=== PATIENT | male | born 1975 | race Caucasian/White ===

== ENCOUNTER 2016-12-10 06:31 | Day surgery (SDC) | payer OTHER ==
[~2016-12-10] VITALS: Ht 182.9 cm; Wt 104.3 kg
--- NOTE | ~2016-12-10 | OP ---
PATIENT NAME: TANESHA RAY MEDICAL RECORD: [id number] :73 LOCATION:[facility] ADMISSION DATE: SURGEON: CHAIM HERNANDES MD DATE OF OPERATION: 12/10/2016 PREOPERATIVE DIAGNOSES: 1. Right inguinal hernia. 2. Umbilical hernia. 3. Male sterilization. POSTOPERATIVE DIAGNOSES: 1. Right inguinal hernia. 2. Umbilical hernia. 3. Male sterilization. PROCEDURES: 1. Right inguinal hernia repair with medium PHS mesh. 2. Umbilical hernia repair without mesh. 3. Bilateral vasectomy performed by Dr. Leigh. SURGEON: Chaim Hernandes MD CO-SURGEON: Marcos Leigh MD REPORT OF OPERATION: The patient's abdomen and pelvis were prepped and draped in sterile fashion. A skin incision was made in an oblique fashion above the right inguinal ligament. Electrocautery was used to dissect through the subcutaneous tissues. We entered the inguinal canal through an opening in the external oblique fascia, which was opened all the way to the external ring. The patient had a moderate sized inguinal hernia, which was direct. The cremasteric fibers were dissected free and we were able to free up the hernia sac from the spermatic cord, this was placed back down into the abdominal cavity. The ilioinguinal nerve was found and high ligated. At this point, Dr. Leigh came in and performed a vasectomy on the right side through the right inguinal incision and on the left side through the scrotal incision. While he was performing this, I moved up to the patient's umbilicus and made a semicircular incision on the inferior aspect of the umbilicus. Electrocautery was used to dissect through the subcutaneous tissues and I bluntly came around the umbilical stalk. The stalk was transected using electrocautery and the small hernia defect was visualized. There was a fatty omentum present within the hernia defect and this was pushed back down into the abdominal cavity. The hernia defect was approximately 1.1 cm in greatest diameter. The edges were cleaned up and the hernia was reapproximated transversely using interrupted 0 Prolenes times 4. The umbilicus was tacked back down to the fascia using an interrupted 3-0 Vicryl. The subcutaneous tissues were reapproximated with interrupted 3-0 Vicryls and the skin was closed with running subcutaneous 5-0 Monocryl. A 10 mL of 0.25% Marcaine plain was infused into the surrounding tissues of the umbilicus. At this point, Dr. Leigh was done with the vasectomy. I reapproach the patient's right inguinal canal. An opening was made in the inguinal floor and a medium PHS mesh was inserted into the preperitoneal space of Retzius. This was sutured down on all 4 sides using interrupted 0 Prolenes. The wound was irrigated out with normal saline and care was taken to make sure there was no sign of any bleeding. The external oblique fascia was then closed with running 2-0 Vicryl, Tyshawn's was closed with interrupted 3-0 Vicryls and the skin was closed with running subcutaneous 5-0 Monocryl. We infused with a total OPERATIVE REPORT [id number] TANESHA RAY of 10 mL of 0.25% Marcaine plain into the surrounding tissues and the 2 wounds were dressed appropriately. COMPLICATIONS: None. CONDITION: Stable. ANESTHESIA: General endotracheal and local. BLOOD LOSS: 30 mL. TRANSINT:[id number] Voice Confirmation ID: [id number] DOCUMENT ID: [id number] CHAIM HERNANDES MD CC: MARCOS LEIGH MD and RAMSEY SNE MD [id number] DICTATION DATE: 12/10/161723 FIREMAN HELPER: 12/10/162012 [facility] [address] [place] [address]
--- NOTE | ~2016-12-10 | OP ---
PATIENT NAME: TANESHA RAY MEDICAL RECORD: [id number] :73 LOCATION:[facility] ADMISSION DATE: SURGEON: MARCOS LEIGH MD DATE OF OPERATION: 12/10/2016 SURGEON: Marcos Leigh MD. CELLOPHANE BAG MACHINE OPERATOR: Chaim Bush MD. ANESTHESIA: General anesthesia by Dr. Toby MD. PROCEDURES: Elective male sterilization, bilateral vasectomy. FINDINGS: Bilateral vasa deferentia. PROCEDURE: Bilateral vasectomy. SPECIMENS: Vas deferens segments bilaterally. ESTIMATED BLOOD LOSS: None. CLINICAL HISTORY: This is a 41-year-old male, who is having an open right inguinal hernia repair performed by Dr. Bush. He is also getting an umbilical hernia repair. While he is under anesthesia, he wished to have elective male sterilization. Risks of the procedure, especially including scrotal hematoma and infection as well as persistence of sperm in the ejaculate it was discussed with the patient. Dr. Bush has already started the surgery. The patient has been given his preoperative antibiotics. He is in supine position on the OR table. Dr. Bush had dissected out the right inguinal cord in preparation for repairing the hernia. Thus, it was relatively easy for me to isolate the vas in the inguinal cord. An Allis clamp was used to maintain traction on the vas. The tunics over the vas were stripped using Bovie. Hemostats were then used proximally and distally on either side of the Allis clamp. The intervening segment was removed using Metzenbaum scissors. The exposed ends of the vas deferens segments were cauterized using cautery. A 2-0 Prolene ties were placed around these ends, also underneath the hemostats, which were then released. No bleeding was seen and this side was completed. Dr. Bush then proceeded to put perineal mesh into the hernia to repair it. On the patient's left side, a traditional transscrotal approach has been undertaken. The vas deferens was trapped using a 3 finger technique. A towel clip was placed to prevent the vas deferens from migrating away. The scrotal skin overlying the vas was infiltrated with 0.25% Marcaine without epinephrine. He is very vascular in the scrotum. Even our needlestick location start to bleed from a venous bleeding. We made 1 cm long incision vertically using a #15 blade. A Al clamp was used to go posterior to the vas to bring it out. The tunics were stripped using Bovie. Again, the proximal and distal ends were clamped using hemostats. There was about a 1 cm segment intervening. The #15 blade was used to isolate the segment, which was sent to pathology. The ends were cauterized and tied using 2-0 Prolene. There was fairly significant bleeding from the cord and especially from the skin edge. These were all cauterized. There was no further visible venous bleeding before we closed. Skin closure was with 4-0 Vicryl in simple interrupted fashion. At the end of the procedure fluffs and mesh panties will be given to the patient. I will see the patient in followup next week to check on his wound healing. OPERATIVE REPORT [id number] TANESHA RAY:[id number] Voice Confirmation ID: [id number] DOCUMENT ID: [id number] MARCOS LEIGH MD CC: [id number] DICTATION DATE: 12/10/16 170 UNDERGROUND ROOF BOLTER: 12/10/16 204 [facility] 12/10/16 [id number] [place] [address]
[~2016-12-10 06:31] MED LIST: BACTRIM DS TABL1 TAB PO; [UNRECOGNIZED DRUG - CODE] IM
[2016-12-10 10:32] VITALS: BP 136/101; Ht 182.9 cm; Wt 104.3 kg
--- NOTE | 2016-12-10 17:02 | NUR ---
LAY OUT AT 9103
[2016-12-10] MEDS ORDERED: HYDROCODONE-APA1 TAB PO (17:16)
[2016-12-10] MEDS ORDERED: AMBIEN10 MG PO (17:18)
--- NOTE | 2016-12-10 19:41 | NUR ---
STAND-BY ASSIST PROVIDED FOR PATIENT TO WALK TO BATHROOM AND VOID LARGE AMOUNT IN TOILET. PATIENT RATES PAIN AT 3 ON 0-10 SCALE. LEFT FOREARM PIV DC'D WITH TIP INTACT. ASSISTED PATIENT TO DRESS IN PERSONAL CLOTHING. AWAITING GIRLFRIEND TO RETURN FROM PHARMACY TO PROVIDE TRANSPORTATION
--- NOTE | 2016-12-10 19:55 | NUR ---
REVIEWED DISCHARGE INSTRUCTIONS WITH SIGNIFICANT OTHER AND PATIENT. HYDROCODONE GIVEN FOR PAIN LEVEL OF 5 IN SCROTUM, ABDOMEN, AND GROIN.
--- NOTE | 2016-12-10 20:10 | NUR ---
PATIENT DISCHARGED HOME VIA WHEELCHAIR TO PRIVATE VEHICLE WITH SIGNIFICANT OTHER. SIGNIFICANT OTHER DOES NOT LIVE WITH PATIENT BUT STATES SHE WILL PROBABLY STAY WITH HIM TONIGHT AT HIS APARTMENT, UNDERSTANDS THAT IT WOULD BE RECOMMENDED THAT AN ADULT STAY WITH PATIENT TONIGHT
== END 2016-12-10 20:10 | disposition home or self-care (01) ==
LOC: D.OPS 06:31 → D.PAN 11:15 → D.OPS 11:30 → D.PAN 11:30 → D.OPS 12:15
DX: K40.90 Unilateral inguinal hernia, without obstruction or gangrene, not specified as recurrent (principal); K42.9 Umbilical hernia without obstruction or gangrene; Z30.2 Encounter for sterilization